=== PATIENT | female | born 1995 | race Caucasian/White ===

== ENCOUNTER 2024-09-08 09:16 | Emergency (ER) | payer OTHER ==
[~2024-09-08] VITALS: Ht 162.6 cm; Wt 65.8 kg
[2024-09-08 10:15] LABS: BASOPHILS # (AUTO) 0.1 K/uL (0.0-0.2); BASOPHILS % (AUTO) 0.9 % (0.0-2.0); EOSINOPHILS % (AUTO) 0.1 % (0.0-6.0); HEMATOCRIT 45 % (33-45); LYMPHOCYTES # (AUTO) 1.5 K/uL (0.8-4.8); MEAN CORPUSCULAR HEMOGLOBIN 30 PG (26.0-33.0); MEAN CORPUSCULAR HGB CONC 34 g/dl (31.0-36.0); MEAN CORPUSCULAR VOLUME 90 fL (82-100); MONOCYTES # (AUTO) 1.7 K/uL (0.1-1.30); MONOCYTES % (AUTO) 11.9 % (2.0-12.0); NEUTROPHILS # (AUTO) 10.7 K/uL (1.8-8.9); NEUTROPHILS % (AUTO) 76.1 % (43.0-81.0); PLATELET COUNT (AUTO) 224 K/uL (150-450); RED BLOOD CELL COUNT(AUTO) 4.94 MIL/uL (4.0-5.2); RED CELL DISTRIBUTION WIDTH 13.8 % (11.5-15.0)
[2024-09-08 10:26] LABS: CALCIUM, SERUM 8.8 mg/dL (8.5-10.1); CREATININE 1.3 mg/dL (0.6-1.3); POTASSIUM 2.8 mmol/L (3.5-5.1)
[2024-09-08] MEDS: ONDANSETRON HCL/PF 4 MG/2 ML VIAL IVP ONE (10:30)
[2024-09-08] MEDS: IV NS 0.9% 1,000 ML BAG IV ONE (10:32)
[2024-09-08 10:35] LABS: ALBUMIN 3.9 g/dL (3.4-5.0); BILIRUBIN,DIRECT 0.4 mg/dL (0.0-0.2); BILIRUBIN,TOTAL 2.2 mg/dL (0.2-1.0); TOTAL PROTEIN, SERUM 7.6 g/dL (6.4-8.2)
[2024-09-08] MEDS ORDERED: ONDANSETRON HCL/PF 4 MG/2 ML VIAL ONE (10:39)
[2024-09-08] MEDS ORDERED: Magnesium 1GM/D5W 100ML PREMIX 100 ML IV ONE (12:27)
[2024-09-08] MEDS ORDERED: POTASSIUM CHLORIDE 20 MEQ TAB.PRT.SR PO ONE (12:27)
[2024-09-08] MEDS ORDERED: KETOROLAC TROMETHAMINE 15 MG/ML VIAL ONE (12:27)
[2024-09-08] MEDS ORDERED: POTASSIUM CL. PREMIX PERIPHER. 50 ML ONE (12:27)
[2024-09-08] MEDS: KETOROLAC TROMETHAMINE 15 MG/ML VIAL IV ONE (12:30)
[2024-09-08] MEDS: POTASSIUM CL. PREMIX PERIPHER. 50 ML IV SCH (12:30)
[2024-09-08] MEDS: POTASSIUM CHLORIDE 20 MEQ TAB.PRT.SR PO ONE (12:37)
[2024-09-08] MEDS ORDERED: ONDA4TAB11 PO (12:52)
[2024-09-08] MEDS: Magnesium 1GM/D5W 100ML PREMIX 100 ML IV SCH (13:30)
[2024-09-08 14:33] VITALS: BP 121/69; TEMP 99.1; O2SAT 98
== END 2024-09-08 14:33 | disposition home or self-care (01) ==
LOC: ER 09:26
DX: R11.2 Nausea with vomiting, unspecified (principal); R10.33 Periumbilical pain; R74.01 Elevation of levels of liver transaminase levels; E87.6 Hypokalemia; K58.9 Irritable bowel syndrome, unspecified; R10.2 Pelvic and perineal pain
CPT/HCPCS: 99285; 96365; 76705; 96375; 96367; 96361; 85025; 80048; 83690; 80076; 36415; 84702; J2405; J7030; J3480; J3475; J1885